=== PATIENT | female | born 1990 | race Caucasian/White ===

== ENCOUNTER 2019-06-20 14:13 | Inpatient (IN) | payer OTHER ==
[~2019-06-20] VITALS: Ht 156.2 cm; Wt 70.8 kg
[2019-06-20 15:20] VITALS: BP 134/79
--- NOTE | 2019-06-20 15:20 | NUR ---
29 year old FEMALE admitted to room # 519 for stabilization. Reports an addiction to HEROIN, COCAINE last used 24 hours prior to admission. Compliant with admission procedure. Patient complains of anxiety, is able to sit still, able to focus eyes on nurse during interview.
[2019-06-20] MEDS ORDERED: REMERON15 M2 PO (16:05)
[2019-06-20] MEDS ORDERED: REQUIP0.25 M1 PO (16:05)
[2019-06-20] MEDS ORDERED: ISIBLOOM 28 DA1 EACH PO (16:05)
[2019-06-20] MEDS ORDERED: EFFEXOR XR150 M1 PO (16:05)
[2019-06-20 16:13] LABS: BASO % 0.3 % (0.0-1.0); EOS % 0.2 % (1.0-4.0); HEMATOCRIT 45.8 % (37.0-47.0); HEMOGLOBIN 15.4 g/dl (12.0-16.0); LYMPH # 1.4 10*3/uL (1.3-4.4); LYMPH % 13.2 % (27.0-41.0); MEAN CELL VOLUME 91.2 fl (81.0-99.0); MEAN CORPUSCULAR HGB 30.7 pg (27.0-31.0); MEAN CORPUSCULAR HGB CONC 33.6 g/dl (33.0-37.0); MEAN PLATELET VOLUME 9.2 fl (9.6-12.3); MONO # 0.3 10*3/uL (0.1-1.0); MONO % 2.6 % (3.0-9.0); NEUT # 9.1 10*3/uL (2.3-7.9); NEUT % 83.4 % (47.0-73.0); PLATELET COUNT AUTOMATED 395 10*3/uL (130-400); RED BLOOD COUNT 5.02 10*6/uL (4.10-5.10); RED CELL DISTRI WIDTH 12.7 % (0-14.5); WHITE BLOOD COUNT 10.9 10*3/uL (4.8-10.8)
--- NOTE | 2019-06-20 16:15 | NUR ---
PATIENT MEETS [facility]. CINA=20. PATIENT IS WANTING TO FOLLOW UP WITH [facility] FOR RESIDENTIAL TREATMENT FOR HER AFTERCARE PLAN. 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
[2019-06-20 16:19] LABS: BILIRUBIN NEGATIVE (NEGATIVE); BLOOD NEGATIVE (NEGATIVE); CLARITY CLEAR (CLEAR); COLOR YELLOW (YELLOW); GLUCOSE NEGATIVE (NEGATIVE); KETONE NEGATIVE (NEGATIVE); LEUKO ESTERASE NEGATIVE (NEGATIVE); NITRITE NEGATIVE (NEGATIVE); PH 6.5 (5.0-9.0); SPECIFIC GRAVITY 1.025 (1.005-1.030); UROBILINOGEN 0.2 E.U./dl (0.2-1.0)
[2019-06-20 16:21] LABS: URINE AMPHETAMINES < 1000 (1000ng/ml); URINE BARBITURATES < 200 (200ng/ml); URINE BENZODIAZEPINES < 200 (200ng/ml); URINE CANNABINOIDS (THC) < 50 (50ng/ml); URINE COCAINE > 300 (300ng/ml); URINE METHADONE > 300 (300ng/ml); URINE OPIATES > 300 (300ng/ml)
[2019-06-20 16:25] LABS: URINE PHENCYCLIDINE < 25 (25ng/ml)
[2019-06-20 16:30] LABS: BACTERIA 1+; MUCOUS 1+
[2019-06-20 16:30] LABS: ALBUMIN 3.8 gm/dl (3.1-4.5); ALKALINE PHOSPHATASE 62 U/L (45-117); BUN 13 mg/dl (7-24); CHLORIDE 110 mmol/L (98-107); CREATININE 0.84 mg/dL (0.55-1.02); POTASSIUM 3.9 mmol/L (3.5-5.1); SGOT/AST 14 IU/L (3-35); SGPT/ALT 15 U/L (12-78); SODIUM 140 mmol/L (136-145); TOTAL PROTEIN 7.4 gm/dL (6.4-8.2)
[2019-06-20 16:36] LABS: BETA-HCG, QUANT < 1.0 mIU/mL (1-3); ETHYL ALCOHOL < 3.0 mg/dl (<3)
--- NOTE | 2019-06-20 16:51 | NUR ---
PT COMPLAIN OF WITHDRAWL SYMPTOMS, PRN MEDICATIONS GIVEN.
--- NOTE | 2019-06-20 20:16 | NUR ---
24 HR chart check completed.
--- NOTE | 2019-06-20 21:21 | NUR ---
Patient displaying withdrawal symptoms, including: irritability, anxiousness, restlessness and agitation. Scheduled/PRN medications provided, SEE EMAR. Will continue to monitor medication effectiveness.
--- NOTE | 2019-06-20 23:00 | NUR ---
Patient resting. Responding to scheduled medications with fewer complaints of pain and anxiety.
[2019-06-21] VITALS: BP 111/61
--- NOTE | 2019-06-21 | NUR ---
SLEEPING. NO DISTRESS NOTED. RESPIRATIONS EASY. VSS. CALL LIGHT WITHIN REACH
--- NOTE | 2019-06-21 02:00 | NUR ---
Patient displaying withdrawal symptoms, including: irritability, anxiousness, restlessness and agitation. Scheduled medications provided, SEE EMAR. Will continue to monitor medication effectiveness.
--- NOTE | 2019-06-21 04:00 | NUR ---
Patient resting. Responding to scheduled medications with fewer complaints of pain and anxiety.
[2019-06-21 08:00] VITALS: BP 129/61
--- NOTE | 2019-06-21 14:42 | NUR ---
[facility] STAFF IN TO SEE PATIENT. PATIENT IS STILL WANTING TO FOLLOW UP WITH [facility] FOR RESIDENTIAL TREATMENT. [facility] STAFF SENT ASSESSMENT TO [facility] TO REVIEW. [facility] STAFF WILL FOLLOW UP WITH PATIENT CONCERNING HER AFTERCARE PLAN. 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
[2019-06-21 16:00] VITALS: BP 116/75
--- NOTE | 2019-06-21 20:48 | NUR ---
PATIENT GIVEN NICOTINE GUM FOR NICOTINE DEPENDENCE.
--- NOTE | 2019-06-21 21:28 | NUR ---
NICOTINE GUM EFFECTIVE.
[2019-06-22] VITALS: BP 124/81
[2019-06-22 08:00] VITALS: BP 120/79
[2019-06-22 16:00] VITALS: BP 105/77
--- NOTE | 2019-06-22 16:06 | NUR ---
PATIENT WAS NOT ACCEPTED TO [facility], HOWEVER PATIENT WAS ACCEPTED TO [facility]. PATIENT IS SCHEDULED TO BE THERE, THURSDAY, June AT NOON. PATIENT REPORTS THAT SHE HAS TRANSPORTATION TO FACILITY. PATIENT AGREES AND UNDERSTANDS HER AFTERCARE PLAN. 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
--- NOTE | 2019-06-22 16:16 | NUR ---
PT TO GO TO [facility] BY NOON TOMORROW. DR GOMEZ AWARE.
--- NOTE | 2019-06-22 21:36 | NUR ---
PATIENT MEDICATED WITH MOTRIN AND ROBAXIN FOR C/O WITHDRAWAL SYMPTOMS. WILL CONTINUE TO MONITOR
[2019-06-23] VITALS: BP 120/71
--- NOTE | 2019-06-23 07:37 | NUR ---
24 HR chart check completed.
[2019-06-23 08:00] VITALS: BP 127/87
--- NOTE | 2019-06-23 12:50 | NUR ---
Patient discharged in stable condition, referral letter provided to patient with specific instructions and appointment for ongoing treatment. Patient verbalizes understanding of discharge plan. PT HAD NO IV AND UNDERSTOOD HER DISCHARGE INSTRUCTIONS.
== END 2019-06-23 12:50 | disposition home or self-care (01) | DRG 773 ==
LOC: 5E 14:13
PROVIDERS: Internal Medicine; ADMIT Internal Medicine
DX: F11.23 Opioid dependence with withdrawal (principal); F14.23 Cocaine dependence with withdrawal; F32.9 Major depressive disorder, single episode, unspecified; F43.10 Post-traumatic stress disorder, unspecified; G25.81 Restless legs syndrome; F17.210 Nicotine dependence, cigarettes, uncomplicated; M79.10 Myalgia, unspecified site; Z90.49 Acquired absence of other specified parts of digestive tract; Z82.49 Family history of ischemic heart disease and other diseases of the circulatory system; Z82.61 Family history of arthritis; Z84.89 Family history of other specified conditions; Z88.0 Allergy status to penicillin; Z88.1 Allergy status to other antibiotic agents; Z79.899 Other long term (current) drug therapy; Z71.6 Tobacco abuse counseling